=== PATIENT | female | born 2005 | race African-American/Black ===

== ENCOUNTER 2024-07-20 20:23 | Emergency (ER) | payer OTHER ==
[2024-07-20 20:52] VITALS: BP 112/76; PULSE 79; RESP 17; TEMP 98.1; BMI 21.7
[2024-07-20 20:59] LABS: HEMOGLOBIN 13.3 G/dL (10.7-15.3); MCH 28.2 pg (25.7-33.7); MCHC 31.6 g/dl (32.0-36.0); MEAN CELL VOLUME 89.1 fl (80-96); MEAN PLT VOLUME 8.6 fl (7.5-11.1); PLATELET COUNT 235.7 10^3/uL (134-434); RBC 4.71 10^6/uL (3.60-5.2); WHITE BLOOD COUNT 5.6 10^3/uL (4.0-10.8)
[2024-07-20 21:10] LABS: ALK PHOS 116 U/L (45-117); ANION GAP 8 mmol/L (4-13); BILIRUBIN,TOTAL 0.3 mg/dl (0.2-1); CALCIUM 9.8 mg/dl (8.5-10.1); CHLORIDE 102 mmol/L (98-107); CO2 29 mmol/L (21-32); CREATININE 1.1 mg/dl (0.6-1.3); GLUCOSE,RANDOM 70 mg/dl (74-106); POTASSIUM 3.4 mmol/L (3.5-5.1); SGOT/AST 19 U/L (15-37); SGPT/ALT 11 U/L (7-52); SODIUM 139 mmol/L (136-145); TOT PROT 7.9 g/dl (6.4-8.2)
[2024-07-20 21:11] LABS: PLATELET ESTIMATE ADEQUATE
[2024-07-20] MEDS ORDERED: MAGNESIUM SULFATE IN WATER 2 GM/50 ML IVPB IVPB ONE (21:57)
[2024-07-20] MEDS ORDERED: MAG HYDROX/AL HYDROX/SIMETH 30 ML UNIT-DOSE CUP ONE (21:57)
[2024-07-20] MEDS: MAGNESIUM SULF 50% (8.12 MEQ/2 ML-1 GM VIAL) IVPB ONE (21:59)
[2024-07-20] MEDS: POTASSIUM CHLORIDE ORAL LIQUID 20 MEQ/15 ML PO SCH (21:59)
[2024-07-20] MEDS: MAG HYDROX/AL HYDROX/SIMETH 30 ML UNIT-DOSE CUP PO ONE (21:59)
[2024-07-20] MEDS ORDERED: DEXTROSE 5%-NORMAL SALINE 500 ML IV ONE (22:03)
[2024-07-20] MEDS: DEXTROSE 5%-NORMAL SALINE 1,000 ML IV ONE (22:44)
== END 2024-07-20 23:37 | disposition home or self-care (01) ==
LOC: FER 20:23
PROC: 3E033GC Introduction of Other Therapeutic Substance into Peripheral Vein, Percutaneous Approach (ICD-10-PCS; principal; 2024-07-20)
PROC: 3E0337Z Introduction of Electrolytic and Water Balance Substance into Peripheral Vein, Percutaneous Approach (ICD-10-PCS; 2024-07-20)
DX: R55 Syncope and collapse (principal); E16.2 Hypoglycemia, unspecified; E87.6 Hypokalemia
CPT/HCPCS: 36415; 71045-TC-FY; 80053; 81003; 84436; 84443; 84484; 84702; 85027; 87086; 93005; 99285-25